=== PATIENT | female | born 1960 | race Caucasian/White ===

== ENCOUNTER → 2019-03-29 | Outpatient (CLI) | payer MEDICARE, OTHER ==
[~2019-03-29] MED LIST: HOLD METFORMIN - RECEIVED CONTRAST 20 ML VIAL IV SCH
[2019-03-29] MEDS: IOHEXOL 350 MG/ML 100 ML (OMNIPAQUE 350) VIAL IV ONE (09:38)
[2019-03-29] MEDS: NS 100 ML (IVPB) BAG IV ONE (09:38)
[2019-03-29] MEDS: CATHETER FLUSH 10 ML SYR IV PRN (09:38)
--- NOTE | 2019-03-29 10:06 | Diagnostic Imaging Report ---
PROCEDURE: CT abdomen and pelvis with contrast. TECHNIQUE: Multiple contiguous axial images were obtained through the abdomen and pelvis after administration of intravenous contrast. Auto Exposure Controls were utilized during the CT exam to meet ALARA standards for radiation dose reduction. INDICATION: Epigastric abdominal pain for one week. COMPARISON: No prior studies are available for comparison. FINDINGS: The lung bases are clear. No discrete liver mass is identified. The gallbladder is surgically absent. Bile ducts are prominent however this could be secondary to post cholecystectomy. Pancreas and spleen are unremarkable. Postop changes of gastric bypass are noted. No adrenal mass is identified. The kidneys are unremarkable. Aorta is nonaneurysmal. The bowel loops appear to be normal in caliber. There is no obstruction. There is no ascites. No inflammatory process in the abdomen or pelvis is identified. No definite lymphadenopathy is seen. IMPRESSION: 1. Status post cholecystectomy. Bile ducts are somewhat prominent, however, it is likely secondary to post cholecystectomy. 2. Postop changes of gastric bypass surgery. No definite complicating features are seen. 3. No acute feature in the abdomen or pelvis is identified. Dictated by: Dictated on workstation # [id number]
== END ==
LOC: RAD FS 09:02
PROVIDERS: ATTEND Nurse Practitioner
DX: K83.8 Other specified diseases of biliary tract (principal); R10.13 Epigastric pain; Z90.49 Acquired absence of other specified parts of digestive tract; Z98.84 Bariatric surgery status
CPT/HCPCS: 74177